=== PATIENT | female | born 1990 | race Caucasian/White ===

== ENCOUNTER 2020-12-14 22:23 | Emergency (ER) | payer OTHER, MEDICAID, SELFPAY ==
--- NOTE | ~2020-12-14 | XR_ITS ---
XR foot RT min 3V 12/14/2020 22:44 INDICATION: Right foot pain after trauma PROCEDURE: 4 views right foot COMPARISON: No prior studies for comparison. FINDINGS: Fracture, dislocation or subluxation is not identified. The soft tissues appear within norm al limits. No foreign bodies are identified. IMPRESSION: 1: NO ACUTE BONE OR JOINT ABNORMALITY IDENTIFIED. Reviewed, dictated and finalized at location A. NESS SUPPORT ASSISTANT
[2020-12-14 22:32] VITALS: BP 137/87; PULSE 88; RESP 18; TEMP 36.9; O2SAT 100
--- NOTE | 2020-12-14 22:40 | ED.LOWEXIN ---
HPI - Extremity Injury (Lower) General Chief Complaint: Extremity Injury, Lower Stated Complaint: r foot injury Time Seen by Provider: 12/14/20 22:37 Source: patient Mode of arrival: ambulatory Limitations: no limitations History of Present Illness HPI Narrative: Patient is a 22-year-old female complaining of right foot pain after heavy object dropped on her right foot at work prior to arrival. Patient states her pain is a 7 out of 10, aching, nonradiating. Patient denies any other pain or injury. Related Data Home Medications Medication Instructions Recorded Confirmed No Home Medications 12/14/20 12/14/20 Allergies Allergy/AdvReac Type Severity Reaction Status Date / Time No Known Allergies Allergy Unverified 04/01/18 10:48 Review of Systems Review of Systems: All systems reviewed & are unremarkable except as noted in HPI and below Constitutional: Constitutional: Denies body ache(s), Denies chills, Denies excessive sweating, Denies fatigue, Denies fever(s), Denies headache(s), Denies lethargy, Denies malaise, Denies weakness and Denies weight loss Eyes: Eyes: Denies blurry vision, Denies change in vision and Denies loss of vision ENT: Denies dizziness, Denies ear discharge, Denies headache(s), Denies lip swelling, Denies epistaxis, Denies nasal congestion, Denies neck pain, Denies throat swelling and Denies tongue swelling Cardiovascular: Cardiovascular: Denies chest pain, Denies chest pain at rest, Denies chest pain with activity, Denies diaphoresis, Denies rapid heart rate, Denies edema, Denies irregular heart rhythm, Denies lightheadedness, Denies palpitations, Denies dyspnea and Denies dyspnea on exertion Respiratory: Respiratory: Denies chest congestion, Denies cough, Denies hemoptysis, Denies dyspnea and Denies dyspnea on exertion Gastrointestinal: Gastrointestinal: Denies abdominal pain, Denies melena, Denies hematochezia, Denies diarrhea, Denies nausea, Denies vomiting and Denies hematemesis Musculoskeletal: Musculoskeletal: Denies abnormal gait, Denies deformity, Denies joint swelling, Denies limited range of motion, Denies neck pain and Denies numbness Neurologic: Denies Abnormal speech present, Denies abnormal gait, Denies confusion, Denies dizziness, Denies headache(s), Denies focal weakness, Denies loss of vision, Denies numbness, Denies Other visual disturbances, Denies Sensory deficit (Neuro) and Denies weakness Psychiatric: Psychiatric: Denies confusion, Denies depression, Denies auditory hallucinations, Denies homicidal ideation and Denies suicidal ideation Endocrine: Endocrine: Denies cold intolerance, Denies excessive sweating, Denies fatigue, Denies heat intolerance and Denies palpitations Hematologic/Lymphatic: Hematologic/Lymphatic: Denies easy bleeding and Denies easy bruising Allergic/Immunologic: Allergic/Immunologic: Denies lip swelling, Denies throat swelling and Denies tongue swelling Exam Const: General: no acute distress HENMT: Head: normal to inspection Eyes: Conjunctivae: conjunctivae normal Neck: Neck: normal visual inspection Resp: Effort & Inspection: normal respiratory effort Skin: General skin exam: normal color Rashes: no rashes Neuro: General: patient oriented x3, moves all extremities and no focal motor deficits Extrem: General: no clubbing, cyanosis or edema Other: Negative for any deformity of bilateral lower extremities. Pain on palpation of the right foot, mild swelling of the right foot, neurovascular is intact. Course Vital Signs Vital signs: Vital Signs Temperature 36.9 C 12/14/20 22:32 Pulse Rate 88 12/14/20 22:32 Respiratory Rate 18 12/14/20 22:32 Blood Pressure 137/87 12/14/20 22:32 Pulse Oximetry 100 12/14/20 22:32 Temperature 36.9 C 12/14/20 22:32 Pulse Rate 88 12/14/20 22:32 Respiratory Rate 18 12/14/20 22:32 Blood Pressure 137/87 12/14/20 22:32 Pulse Oximetry 100 12/14/20 22:32 MDM - Extremity Injur
[2020-12-14] MEDS: TETANUS,DIPHTHERIA,AC PERTUSSIS ADULT (0.5 ML) BOOSTRIX IM (23:24)
== END 2020-12-14 23:54 | disposition home or self-care (01) ==
LOC: ANHED 23:14
PROVIDERS: Emergency Provider Emergency Medicine
DX: S90.31XA Contusion of right foot, initial encounter (principal); Z23 Encounter for immunization; W20.8XXA Other cause of strike by thrown, projected or falling object, initial encounter
CPT/HCPCS: 73630; 90471; 90715; 99283

== ENCOUNTER 2022-12-02 10:11 | Outpatient (CLI) | payer OTHER, SELFPAY ==
--- NOTE | ~2022-12-02 | XR_ITS ---
EXAM: XR foot LT min 3V DATE: 12/02/2022 10:31 HISTORY: ACUTE PAIN IN LT FOOT HAPPENED WHEN WALKING . COMPARISON: None available. FINDINGS: Normal mineralization. No fracture or dislocation. No lytic or blastic lesion. Joint space s are maintained. No erosion or periosteal change. Soft tissues within normal limits. IMPRESSION: Unremarkable left foot radiograph findings. Reviewed, dictated and finalized at location K. L ORGAN PIPE MAKER
== END 2022-12-02 10:12 | disposition home or self-care (01) ==
LOC: ANHIMG 10:18
PROVIDERS: Visit Provider Nurse Practitioner Family
DX: M79.672 Pain in left foot (principal)
CPT/HCPCS: 73630

== ENCOUNTER 2024-01-07 08:58 | Emergency (ER) | payer OTHER, SELFPAY ==
--- NOTE | ~2024-01-07 | XR_ITS ---
EXAMINATION: XR soft tissue neck INDICATION: Left-sided foreign body sensation TECHNIQUE: Two views of the neck soft tissues are obtained. COMPARISON: None available FINDINGS: No radiopaque foreign body is identified. The neck soft tissues appear unremarkable. There is mild reversal of the normal cervical lordosis with mild spondylosis is noted at C5-6. IMPRESSION: 1. Unremarkable neck radiographs. Reviewed, dictated and finalized at location B. HYSICS SCIENTIST
[2024-01-07 09:14] VITALS: BP 144/82; PULSE 91; RESP 16; TEMP 37.2; O2SAT 100
--- NOTE | 2024-01-07 09:16 | ED.URI ---
HPI - URI/Sore Throat General Chief Complaint: Upper Respiratory Infection Stated Complaint: Sore Throat Time Seen by Provider: 01/07/24 09:16 Source: patient Mode of arrival: ambulatory Limitations: no limitations History of Present Illness HPI Narrative: 33 yo F presents with c/o FB sensation to L side of throat/neck for 2 days. Reports painful. No other symptoms. Afebrile. all systems reviewed and negative except as noted above. Related Data Home Medications Medication Instructions Recorded Confirmed No Home Medications 12/14/20 01/07/24 Allergies Allergy/AdvReac Type Severity Reaction Status Date / Time No Known Allergies Allergy Verified 01/07/24 09:12 Review of Systems Review of Systems: CONSTITUTIONAL: Denies fever, chills, or sweats. EYES: Denies visual changes, redness, or discharge. ENT: Denies rhinorrhea, congestion. reports pain to L side of throat/neck, worse with swallowing CARDIOVASCULAR: Denies chest pain, palpitations, or edema. RESPIRATORY: Denies cough or dyspnea. GASTROINTESTINAL: Denies abdominal pain, nausea, vomiting, or diarrhea. GENITOURINARY: Denies dysuria or hematuria. SKIN: Denies rash or itching. MUSCULOSKELETAL: Denies back pain, joint pain, or myalgia. NEUROLOGIC: Denies headache, numbness, or weakness. PSYCHIATRIC: Denies anxiety or depression. All other systems reviewed are negative, except as documented in HPI. PMFSH Comments At time of signature, agree with nursing past medical, surgical, social and family history. There is no relevant family history pertinent to the presenting complaint. Exam Narrative: GENERAL: This is a well-nourished, well-developed patient, in no apparent distress. HEAD: normocephalic, atraumatic. EYES: PERRL. Sclera clear/white. Vision is grossly intact. EARS: External ears normal, auditory canals clear and without drainage, TMs normal without perforation. Hearing grossly intact. NOSE: External nose normal with no obvious nasal discharge, nares without redness, no rhinorrhea. THROAT: Mucous membranes moist, posterior pharynx clear. NECK: Neck supple, non-tender without lymphadenopathy, masses or thyromegaly. CARDIOVASCULAR: Regular rate and rhythm without murmurs, gallops, or rubs. RESPIRATORY: Clear to auscultation. Breath sounds equal bilaterally. No wheezes, rales, or rhonchi. SKIN: warm, Dry, intact with no suspicious lesions or rash, good texture and turgor. NEURO: awake, alert, and oriented to person, place and time. There were no obvious focal neurologic abnormalities. EXTREMITIES: No joint tenderness, effusion, or edema noted. Course Course Level of Care: Express Care Visit Vital Signs Vital signs: Vital Signs Oxygen Delivery Room Air 01/07/24 09:09 Temperature 37.2 C 01/07/24 09:14 Pulse Rate 91 01/07/24 09:14 Respiratory Rate 16 01/07/24 09:14 Blood Pressure 144/82 H 01/07/24 09:14 Pulse Oximetry 100 01/07/24 09:14 Oxygen Delivery Room Air 01/07/24 09:14 Reviewed MDM - URI/Sore Throat MDM Narrative Medical decision making narrative: negative strep test. Patient exam is normal. No lymph node Enlargement or tenderness. Soft tissue neck x-ray normal. Recommend follow-up with primary care physician for further evaluation. Patient is aware of diagnosis, understands and agrees to treatment plan. Anticipatory guidance given. Patient agrees to follow-up as directed and is aware of reasons to seek care at the emergency department. Portions of this record may have been created with voice recognition software Lab Data Labs: Strep Screen Presumptive Negative *(Reference Range: Negative)* Imaging Data My impression: Agree with radiologist Radiologist's impression: EXAMINATION: XR soft tissue neck INDICATION: Left-sided foreign body sensation TECHNIQUE: Two views of the neck soft tissues are obtained. COM
== END 2024-01-07 09:52 | disposition home or self-care (01) ==
PROVIDERS: Emergency Provider Nurse Practitioner Family
DX: R09.A2 Foreign body sensation, throat (principal)
CPT/HCPCS: 70360; 87081; 87880; 99213; G0463

== ENCOUNTER 2024-01-07 15:02 | Emergency (ER) | payer OTHER, SELFPAY ==
[2024-01-07 15:15] VITALS: BP 147/96; PULSE 110; RESP 16; TEMP 36.6; O2SAT 98
--- NOTE | 2024-01-07 17:57 | PC.NURSE ---
called twice for MSE. no answer.
== END 2024-01-07 18:27 | disposition left against medical advice (07) ==
LOC: ANHED 18:13
DX: R09.A2 Foreign body sensation, throat (principal)
CPT/HCPCS: 99199

== ENCOUNTER 2024-09-17 08:56 | Outpatient (CLI) | payer OTHER, SELFPAY ==
--- NOTE | ~2024-09-17 | XR_ITS ---
XR chest 2V Ordering provider: Alicia Mata, ACID DIPPER History: 33 years Female with . ELEVATED LIVER ENZYMES, NO CHEST COMPLAINTS . Comparison: None. FINDINGS: MEDIASTINUM: The cardiac silhouette is not enlarged. LUNGS: No infiltrates, effusions or pneumothorax. OTHER: No free air under the diaphragm. IMPRESSION: No acute cardiopulmonary pathology. Reviewed, dictated and finalized at location A. IFIED HISTOLOGIC TECHNICIAN
--- NOTE | ~2024-09-17 | US_ITS ---
Limited ABDOMINAL ULTRASOUND Ordering provider: Alicia Mata, CORRUGATOR SUPERVISOR History: . ELEVATED LIVER ENZYMES . Comparison: None. FINDINGS: LIVER: Normal size and increased echotexture. No focal hepatic lesions or perihepatic fluid collectio ns are identified. Normal flow of the portal vein. GALLBLADDER: Unremarkable. No evidence for stones, sludge, gallbladder wall thickening or pericholecy stic fluid collections. The wall measures 2.7 mm. A negative sonographic Wyatt's sign was noted. BILIARY DUCTS: No evidence for intra or extrahepatic biliary dilation. Common bile duct measures 3 mm in diameter which is within normal limits. PANCREAS: Normal echotexture and size. UPPER ABDOMINAL AORTA: Normal in caliber. IVC: Patent. FREE FLUID: None. IMPRESSION: Fat infiltration of the liver. Otherwise, Unremarkable limited ultrasound of the abdomen. Reviewed, dictated and finalized at location A. 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 Otherwise, Unremarkable limited ultrasound of th e abdomen.
== END 2024-09-17 08:57 | disposition home or self-care (01) ==
PROVIDERS: PCP Nurse Practitioner Adult Health; Visit Provider Nurse Practitioner Adult Health
DX: R74.8 Abnormal levels of other serum enzymes (principal); F10.10 Alcohol abuse, uncomplicated; K76.0 Fatty (change of) liver, not elsewhere classified
CPT/HCPCS: 71046; 76705

== ENCOUNTER 2024-11-28 14:10 | Outpatient (CLI) | payer OTHER, SELFPAY ==
--- NOTE | ~2024-11-28 | XR_ITS ---
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 RESULT: Lines, tubes, and devices: None. Lungs and pleura: Clear. Cardiothymic silhouette: Stable. Other: No acute osseous or upper abdominal finding. IMPRESSION: No acute cardiopulmonary process. No acute osseous finding in the right ribs. Reviewed, dictated and finalized at location K. O TUBE ASSEMBLER
== END 2024-11-28 14:11 | disposition home or self-care (01) ==
PROVIDERS: PCP Nurse Practitioner Adult Health; Visit Provider Internal Medicine
DX: R07.89 Other chest pain (principal)
CPT/HCPCS: 71100

== ENCOUNTER 2025-06-14 07:02 | Emergency (ER) | payer OTHER, SELFPAY ==
[2025-06-14] VITALS (7 sets, daily range): BP systolic 133–150; BP diastolic 93–102; PULSE 80–112; RESP 18–28; TEMP 36.7; O2SAT 91–99
--- NOTE | ~2025-06-14 | CT_ITS ---
EXAMINATION: CT chest abdomen pelvis w con DATE: 06/14/2025 08:30 INDICATION: Right chest pain. Abdominal trauma. TECHNIQUE: Computed tomography (CT) of the chest, abdomen, and pelvis was performed with 100 mL Omnip aque-350 intravenous contrast. Automated exposure control and iterative reconstruction technique were employed. The dose-length product was 722.73 mGy-cm. COMPARISON: None FINDINGS: CHEST CT: Mild dependent and basilar atelectasis in both lungs. No pulmonary hemorrhage, pneumonia, pulmonary e krystal, pleural effusion or pneumothorax. Heart size is normal. No pericardial effusion. Thoracic aorta is normal in caliber with no dissection. No pathologically enlarged abdominal or pelvic lymphadenopa thy. Chronic mild expansion of the lateral right sixth rib which could represent old fracture deformi ty or potentially small osteochondroma. No acute osseous abnormality. ABDOMEN/PELVIS CT: Mild diffuse hepatic steatosis. Gallbladder, spleen, pancreas, bilateral adrenal glands and right kid saqib are normal. 5 mm low-attenuation left renal cyst. Bowels including the appendix are normal. Bladd er, anteverted uterus and right adnexa are unremarkable. 8.3 cm left adnexal cyst and mild left hydro salpinx without surrounding inflammatory stranding to suggest pyosalpinx. No free intraperitoneal gas or fluid. No pathologically enlarged abdominal or pelvic lymphadenopathy. Bones are unremarkable wit h no fracture. IMPRESSION: 1. No acute osseous abnormality or evident vascular or visceral organ injury in the chest, abdomen or pelvis. 2. Left hydrosalpinx and 8.3 similar left adnexal cyst. Consider gynecologic consultation. Reviewed, dictated and finalized at location A. IMPRESSION: 1. No acute osseous abnormality or evident vascular or visceral organ injury in the chest, abdomen or pelvis. 2. Left hydrosalpinx and 8.3 similar left adnexal cyst. Consider gynecologic co nsultation.
--- NOTE | 2025-06-14 07:14 | ED.GENADULT ---
HPI - General Adult General Chief complaint: Back Pain/Injury Stated complaint: severe side pain History of Present Illness HPI narrative: 34-year-old female presents emergency department for evaluation for right-sided rib and abdominal pain. Patient reports he had a fall few days ago where she tripped and landed on her dog. Patient does have some right arm pain but primarily complains of right lateral lower ribs and right upper quadrant abdominal pain. Patient arrived by EMS and did receive 4 mg of IV morphine, patient states this did help to improve her pain but patient is still uncomfortable appearing upon arrival to the emergency department. Related Data Allergies Allergy/AdvReac Type Severity Reaction Status Date / Time No Known Allergies Allergy Verified 06/14/25 07:27 Review of Systems Review of Systems: All systems reviewed & are unremarkable except as noted in HPI and below Exam Narrative: APPEARANCE: Uncomfortable appearing HEAD: normocephalic, atraumatic. EYES: PERRLA/EOMI, conjunctivae clear. NOSE: Normal no drainage EARS:TMS clear with good light reflex. THROAT: Pharynx clear, no exudate. NECK: Supple. No adenopathy, no masses. RESPIRATORY: Lung sounds clear bilaterally CARDIOVASCULAR: Tachycardic ABDOMINAL: Right upper quadrant tenderness to palpation MUSCULOSKELETAL: Right-sided lower rib tenderness to palpation NEURO: Alert. Cranial nerves II through XII intact. Good gait. Good coordination SKIN: Warm, dry. Normal Color Course Vital Signs Vital signs: Vital Signs Temperature 98.1 F 06/14/25 07:02 Pulse Rate 112 H 06/14/25 07:02 Respiratory Rate 18 06/14/25 07:02 Blood Pressure 150/102 H 06/14/25 07:02 Pulse Oximetry 94 06/14/25 07:02 Oxygen Delivery Room Air 06/14/25 07:02 Temperature 98.1 F 06/14/25 07:02 Pulse Rate 80 06/14/25 10:06 Respiratory Rate 20 06/14/25 10:06 Blood Pressure 133/94 H 06/14/25 10:06 Pulse Oximetry 99 06/14/25 10:06 Oxygen Delivery Room Air 06/14/25 07:02 Medical Decision Making [facility] Narrative Medical decision making narrative: 34-year-old female presents emergency department for evaluation for right-sided rib pain. Patient is currently afebrile leukocytosis hemoglobin 14.1. INR is 1.0. Patient has no significant acute abnormalities on her CMP, mild elevation AST and ALT. Urine was nitrite negative but was leukocyte esterase positive how a blood cells. Patient denies any urinary symptoms. Urine culture was ordered. CT chest abdomen pelvis was evaluated to evaluate for rib fractures, pulmonary contusion liver injury. CT scan showed no acute osseous abnormality or evident vascular visceral organ injury at the chest abdomen or pelvis. It did show a left hydrosalpinx and left adnexal cyst. Patient will be referred to gynecology for further evaluation. I suspect patient's pain is due to rib contusion versus occult rib fracture. Patient will be provided pain medication for home in addition to the symptoms prompted her. Patient was updated on the results of the workup encouraged close follow-up with OB Gyne and she was educated on reasons to return to the emergency department. 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 If patient calls back to the emergency department I am okay with a work note being written for her to have time of for light duty as needed. Differential Diagnosis Differential Diagnosis: Pneumonia, pneumothorax, rib fracture, rib contusion, liver laceration Vital Signs Vital Signs: Vital Signs Temperature 98.1 F 06/14/25 07:02 Pulse Rate 112 H 06/14/25 07:02 Respiratory Rate 18 06/14/25 07:02 Blood Pressure 150/102 H 06/14/25 07:02 Pulse Oximetry 94 06/14/25 07:02 Oxygen Delivery Room Air 06/14/25 07:02 Temperature 98.1 F 06/14/25 07:02 Pulse Rate 80 06/14/25 10:06 Respiratory Rate 20 06/14/25 10:06 Blood Pressure 133/94 H 06/14/25 10:06 Pulse Oximetry 99 06/14/25 10:06 Oxygen Delivery Room Air 06/14/25 07:02 Lab Data Lab results reviewed: Yes I reviewed the patient's lab results. 06/14/25 07:32 06/14/25 07:32 Labs: Lab Results 06/14/25 06/14/25 06/14/25 Range/Units 07:32 07:58 08:01 WBC 8.0 (4.5-10.0) K/mm3 RBC 4.18 L (4.2-5.4) M/mm3 Hgb 14.1 (12.0-15.0) g/dL Hct 42.7 (37.0-47.0) % MCV 102.2 H (80-100) fl MCH 33.7 (26-34) pg MCHC 33.0 (32-36) g/dl RDW 14.6 H (11.5-14.5) % Plt Count 341 (150-375) k/mm3 MPV 9.3 (7.4-10.4) fl Immature Gran % (Auto) 0.4 (0-0.5) % Neut % (Auto) 55.3 (45.5-73.1) % Lymph % (Auto) 30.7 (18.3-44.2) % [place] % (Auto) 7.5 (2.6-8.5) % Eos % (Auto) 5.1 H (0-4.4) % Baso % (Auto) 1.0 (0.2-1.2) % Lymph # (Auto) 2.46 (0.9-3.2) K/mm3 [place] # (Auto) 0.6 (0.1-0.6) K/mm3 Eos # (Auto) 0.4 H (0-0.3) K/mm3 Baso # (Auto) 0.1 (0.0-0.1) K/mm3 Abs Immat Gran (auto) 0.03 (0.00-0.031) K/mm3 Absolute Neuts (auto) 4.4 (1.3-6.7) K/mm3 Absolute Nucleated RBC 0.000 (0.0-0.012) K/mm3 Nucleated RBC % 0.0 (0.0-0.2) % PT 13.7 (11.1-14.7) Seconds INR 1.0 APTT 25.8 (22.3-36.8) Seconds Sodium 136 L (137-145) mmol/L Potassium 3.7 (3.4-5.0) mmol/L Chloride 105 (98-107) mmol/L Carbon Dioxide 18 L (22-30) mmol/L Anion Gap 13 H (4-12) mmol/L BUN 2 L (7-17) mg/dL Creatinine 0.65 L (0.7-1.0) mg/dL Estim Creat Clear Calc 105 ml/min Estimated GFR > 60 (59 - ) Glucose 109 (65-110) mg/dL Calcium 8.7 (8.4-10.2) mg/dL Total Bilirubin 0.4 (0.2-1.3) mg/dL AST 75 H (14-36) U/L ALT 56 H (6-35) U/L Alkaline Phosphatase 99 (38-126) U/L Total Protein 7.3 (6.3-8.2) g/dL Albumin 4.0 (3.5-5.1) g/dL Urine Color Yellow (Yellow) Urine Appearance Cloudy H (Clear) Urine pH 5.0 (5.0-9.0) Ur Specific [place] 1.009 (1.001-1.035) Urine Protein Negative (Negative) mg/dL Urine Glucose (UA) Negative (Negative) mg/dL Urine Ketones Negative (Negative) mg/dL Ur Blood (Man) Negative (Negative) Urine Nitrate Negative (Negative) Urine Bilirubin Negative (Negative) Urine Urobilinogen 0.2 (<2.0) mg/dL Add Ur Microanalysis Reviewed Leukocyte Esterase Rfl 2+ H (Negative) ALMAZ/UL Urine RBC 0-2 (0-2) /hpf Urine WBC 21-50 H (0-3) /hpf Ur Squamous Epith Cells Few (Few) /hpf Urine Bacteria Rare /hpf Urine Casts 6-10 POC Urine HCG, Qual Negative (Negative) Imaging Data Radiologist's impression: Impressions Chest/Abdomen/Pelvis CT 06/14/25 08:30 IMPRESSION: 1. No acute osseous abnormality or evident vascular or visceral organ injury in the chest, abdomen or pelvis. 2. Left hydrosalpinx and 8.3 similar left adnexal cyst. Consider gynecologic consultation. Discharge Plan Discharge Clinical Impression: Contusion of rib on right side, Adnexal cyst Patient Disposition: Home Condition: Stable Instructions: Antibiotic Form, How to Use an Incentive Spirometer (ED), Rib Fracture (ED) Additional Instructions: Your symptoms are concerning for rib fracture. Ibuprofen for pain control, [place] as needed for additional pain control. Flexeril for muscle spasm. Incentive spirometer as directed. If you have any worsening symptoms including worsening uncontrolled pain, fever or shortness of breath then please call or return to the emergency department. CT scan also did show a left hydrosalpinx and a left adnexal cyst, you will need close follow-up with OB Gyne for these incidental findings. Patient Language: Maldivian Prescriptions: New cyclobenzaprine 10 mg tablet 10 mg PO BID PRN (Reason: muscle spasm) Qty: 14 0RF hydrocodone-acetaminophen 5-325 mg tablet 1 tablet PO Q12H PRN (Reason: pain) Qty: 14 0RF Follow-up/Referrals: Adolfo,Alicia Fields APRN [Primary Care Provider] - Anushka Garcia MD [Physician] -
[2025-06-14] MEDS: HYDROmorphone HCL INJ (*CRX) 2 MG/ML VIAL 1 MG IV PUSH (07:31)
[2025-06-14] MEDS: LACTATED RINGERS 1,000 ML 999 ML IV CONT (07:32)
[2025-06-14] MEDS: CYCLOBENZAPRINE HCL 10 MG TABLET PO (07:32)
[2025-06-14 07:38] LABS: Hematocrit 42.7 % (37.0-47.0); Hemoglobin 14.1 g/dL (12.0-15.0); Immature Granulocyte Percent A 0.4 % (0-0.5); Lymphocytes Absolute Auto 2.46 K/mm3 (0.9-3.2); Mean Corpuscular HGB Conc 33.0 g/dl (32-36); Mean Corpuscular Hemoglobin 33.7 pg (26-34); Mean Corpuscular Volume 102.2 fl (80-100); Nucleated Red Blood Cells Absolute Auto 0.000 K/mm3 (0.0-0.012); Nucleated Red Blood Cells Perc 0.0 % (0.0-0.2); Platelet Count Result 341 k/mm3 (150-375); Red Blood Count 4.18 M/mm3 (4.2-5.4); White Blood Count 8.0 K/mm3 (4.5-10.0)
[2025-06-14 07:49] LABS: INR 1.0; Partial Thromboplastin Time 25.8 Seconds (22.3-36.8); Prothrombin Time 13.7 Seconds (11.1-14.7)
[2025-06-14 07:57] LABS: Alanine Aminotransferase 56 U/L (6-35); Albumin Level 4.0 g/dL (3.5-5.1); Alkaline Phosphatase 99 U/L (38-126); Anion Gap 13 mmol/L (4-12); Aspartate Amino Transferase 75 U/L (14-36); Bilirubin,Total 0.4 mg/dL (0.2-1.3); Blood Urea Nitrogen 2 mg/dL (7-17); Calcium 8.7 mg/dL (8.4-10.2); Carbon Dioxide 18 mmol/L (22-30); Chloride 105 mmol/L (98-107); Estimated CRCL calculation 105 ml/min; Estimated Glomerular Filt Rate > 60; Glucose 109 mg/dL (65-110); Potassium 3.7 mmol/L (3.4-5.0); Sodium 136 mmol/L (137-145); Total Protein 7.3 g/dL (6.3-8.2)
--- OUTSIDE RECORDS SUMMARY | 2025-06-14 07:59 | XMS_ITS | Clinical Summary ---
Author Organization [facility] ON Address [address] [place] [address] Care Team Providers Care Time Lock Expert Name Role Phone Ratna Meeks MD Primary Care Provider Allergies Active Allergy Reactions Criticality Noted Date Comments Sertraline Other (See Comments) 01/13/2025 [place] like a Zombie Medications cholecalciferol (Vitamin D3) 25 mcg (1,000 unit) Tablet, Chewable Take 2 Tablets (2,000 Units) by mouth daily. 06/05/2024 Active folic acid (FOLVITE) 1 mg tabletIndicatio ns:Folic acid deficiency (non anemic) TAKE 1 TABLET(1 MG) BY MOUTH DAILY 90 Tablet 1 10/23/2024 Active prazosin (MINIPRESS) 1 mg capsuleIndicati ons:Nightmares Take 1-4 Capsules (1-4 mg) by mouth daily at bedtime. 120 Capsule 1 03/26/2025 Active propranoloL (INDERAL) 10 mg tablet TAKE 1 TABLET(10 MG) BY MOUTH THREE TIMES DAILY 90 Tablet 1 04/13/2025 Active esomeprazole (NexIUM) 40 mg Capsule, Delayed Release(E.C.)In dications:Laryn gopharyngeal reflux (LPR) Take 1 Capsule (40 mg) by mouth daily before breakfast. Take 15-30 min prior to first meal of the day. 90 Capsule 04/29/2025 Active DULoxetine (CYMBALTA) 30 mg Capsule, Delayed Release(E.C.)In dications:Depre ssion with anxiety Take 1 Capsule (30 mg) by mouth 2 times daily. 120 Capsule 05/12/2025 Active meloxicam (MOBIC) 7.5 mg tabletIndicatio ns:Mid back pain Take 1-2 Tablets (7.5-15 mg) by mouth daily. 60 Tablet 05/12/2025 Active Active Problems Problem Noted Date Diagnosed Date Elevated blood pressure read ing without diagnosis of hypertension 10/23/2024 Alcohol abuse 09/04/2024 MTHFR gene mutation 04/24/2024 History of suicide attempt 2018-- overdose sleep ing pills 04/08/2024 Folic acid deficiency (non anemic) 04/08/2024 Vitamin D deficiency 04/08/2024 Mixed hyperlipidemia 03/31/2024 Gastroesophageal reflux disease 01/14/2024 Laryngopharyngeal reflux (LPR) 01/14/2024 Major depressive disorder 07/18/2019 Tobacco use 11/29/2017 Resolved Problems Problem Noted Date Diagnosed Date Resolved Date Uncomplicated alcohol abuse 09/20/2021 09/26/2023 Drug overdose 07/17/2019 09/26/2023 Encounters Date Type Department Care Team Description 05/27/2025 External Device Data STL ABSTRACTION Provider, Abstract 05/26/2025 External Device Data STL ABSTRACTION Provider, Abstract 05/12/2025 8:30 AM CDT Office Visit [facility] [employer] [facility] [address] [place] [address] Ratna Meeks MD Depression with anxiety (Primary Dx); Mid back pain 05/12/2025 External Device Data STL ABSTRACTION Provider, Abstract 05/06/2025 Chart Note [facility] [address] [place] [id number] Humberto Wallace 05/01/2025 2:00 PM CDT Procedure visit [facility] [address] [place] [address] Encounter for issue of repeat prescription (Primary Dx) 04/29/2025 Refill [facility] [address] [place] [address] Alicia Mata ANP Laryngopharyngeal reflux (LPR) 04/28/2025 Telephone [facility] [address] [facility] [place] [address] Humberto Wallace A CoCM Mayra Appt (1st contact to reschedule missed appointment. Pt had been having difficulty with [employer] sign on, so I called and still no response.Left message.) 04/14/2025 10:00 AM CDT Office Visit [address] [place] [address] Humberto Wallace A Moderate episode of recurrent major depressive disorder (CMS/HCC) (Primary Dx); Alcohol use disorder 04/11/2025 Refill [facility] [address] [facility] [place] [id number] Ratna Meeks MD 04/09/2025 7:30 AM CDT Office Visit [facility] at [address] [facility] [place] [address] Ratna Meeks MD Depression with anxiety (Primary Dx); PTSD (post-traumatic stress disorder); Nightmares 03/26/2025 3:00 PM CDT Office Visit [address] [facility] [place] [address] Ratna Meeks MD Nightmares (Primary Dx); Depression with anxiety 03/26/2025 Refill [facility] at [address] [facility] [place] [address] Ratna Meeks MD Nightmares 03/26/2025 Telephone [facility] at [address] [facility] [place] [address] Humberto Wallace A CoCM Follow Up ([facility] submitted a psychiatric consult for addressing increased anxiety. Dr. Arenas submitted a new recommendation to Dr. Meeks today.) 03/25/2025 Chart Note [facility] at [address] [facility] [place] [address] Humberto Wallace 03/24/2025 10:00 AM CDT Video Visit [facility] [employer] [place] [address] [place] [address] RodrigoHumberto Moderate episode of recurrent major depressive disorder (CMS/HCC) (Primary Dx); Alcohol use disorder, mild, in early remission 03/20/2025 Chart Note [facility] [employer] [place] [address] [address] Humberto Wallace 03/16/2025 Telephone [facility] [address] [place] [address] Jose Gongora, TRINITY Foot Pain from Last 3 Months Immunizations Immunization Administration Dates Next Due (ADACEL/BOOSTRIX)(10 YR UP) TDAP VACCINE, 0.5ML, IM 12/14/2020 (KENDALL) COVID-19 VACCINE - EMERGENCY USE AUTHORIZATION, AD26,COV2S(PF) 0.5 ML IM SUSP 06/02/2021 Family History Medical History Relation Name Comments Sleep Disorder Brother KENDALL Atrial fibrillation Father COPD Father Diabetes Father Hypertension Father Kidney Disease Maternal Grandfather Unknown Maternal Grandmother High Cholesterol Mother trig Cancer Paternal Grandfather Brain a nd Lung Cancer Emphysema Paternal Grandmother Thyroid Disease Paternal Grandmother Relation Name Status Comments Brother Alive Father Alive Maternal Grandfather Maternal Grandmother Mother Alive Paternal Grandfather Paternal Grandmother Social History Tobacco Use Types Packs/Day Years Used Date Smoking Tobacco: Every Day Cigarettes Smokeless Tobacco: Never Tobacco Cessation:Ready to Q uit: Not Asked; Counseling Given: Not Answered Alcohol Use Standard Drinks/Week Comments Yes 0 (1 standard drink = 0.6 oz pur e alcohol) 8 drinks a week Comments No Sex and Gender Information Value Date Recorded Sex Assigned at Not on file Legal Sex Female 2:48 PM EVP MANAGING DIRECTOR Gender Identity Not on file Sexual Orientation Not on file Last Filed Vital Signs Vital Sign Reading Time Taken Comments Blood Pressure 128/86 05/12/2025 8:13 AM CDT Pulse 87 05/12/2025 8:13 AM CDT Temperature 37.2 C (99 F) 03/26/2025 2:55 PM CDT Respiratory Rate 18 05/12/2025 8:13 AM CDT Oxygen Saturation 97% 05/12/2025 8:13 AM CDT Inhaled Oxygen Concentration - - Weight 85.7 kg (189 lb) 05/12/2025 8:13 AM CDT Height 162.6 cm (5' 4) 05/12/2025 8:13 AM CDT Body Mass Index 32.44 05/12/2025 8:13 AM CDT Plan of Treatment Upcoming Encounters Date Type Department Care Team (Late st Contact Info) Description 08/03/2025 7:20 AM CDT Procedure visit [facility] [employer] [place] [address] [place] [address] 08/10/2025 8:00 AM CDT Office Visit [facility] [employer] [place] [address] [place] [address] Alicia Mata, ANP [address] [address] 08/12/2025 7:30 AM CDT Office Visit [facility] [employer] [place] [address] [place] [address] Ratna Meeks MD [address] [place] [address] Health Maintenance Due Date Last Done Comments HPV VACCINES (1 - 3-dose series) 2007 HEPATITIS B VACCINES (1 of 3 - 19+ 3-dose series) 2011 HPV/Cotest (21-29) 2013 CERVICAL CANCER SCREENING 2022 HPV/Cotest (30-65) 2022 PAP SMEAR 2022 COVID-19 Vaccine ( season) 2024 INFLUENZA VACCINE (#1) 2025 09/22/2024, 2020 DTAP/TDAP/TD VACCINES (2 - Td or Tdap) 12/14/2030 Care Teams Time Lock Expert Relationship Specialty Start Date End Date Ratna Meeks MD [address] [place] [address] [place] [address] PCP - General Internal Medicine 04/02/24
--- OUTSIDE RECORDS SUMMARY | 2025-06-14 07:59 | XMS_ITS | Encounter Summary ---
Author Organization [facility] Address [address] [place] [address] Care Team Providers Care Rib Cloth Knitter Name Role Phone Ratna Meeks MD Primary Care Provider [phone] Encounter Details Date Type Department Care Team (Late st Contact Info) Description 12/03/2024 Results Follow-Up [facility] at [facility] [employer] [place] [address] [place] [address] Ratna Meeks MD [address] [place] [address] XR RIBS UNILATERAL 2 VW RIGHT Social History Tobacco Use Types Packs/Day Years Used Date Smoking Tobacco: Every Day Cigarettes Smokeless Tobacco: Never Alcohol Use Standard Drinks/Week Comments Yes 0 (1 standard drink = 0.6 oz pur e alcohol) 8 drinks a week Comments No Sex and Gender Information Value Date Recorded Sex Assigned at Not on file Legal Sex Female 2:48 PM INDEX EDITOR Gender Identity Not on file Sexual Orientation Not on file documented as of this encounter Miscellaneous Notes * Result Encounter Note - Jana Gomez RN - 12/05/2024 7:56 AM INDEX EDITOR Sent pt Hypori message giving this information X EDITOR * Result Encounter Note - Jana Gomez RN - 12/04/2024 9:19 AM INDEX EDITOR Spoke to pt giving this information. Pt verbalized understanding. Pt states she has had some improvement in pain but it is still there. Pt states it is more of a moderate pain instead of severe as long as pt limits movements/lifting. X EDITOR documented in this encounter Plan of Treatment Upcoming Encounters Date Type Department Care Team (Late st Contact Info) Description 08/03/2025 7:20 AM CDT Procedure visit [facility] [employer] [place] [address] [place] [address] 08/10/2025 8:00 AM CDT Office Visit [facility] [employer] [place] [address] [place] [address] Alicia Mata, ANP [address] [facility] [address] [place] [address] 08/12/2025 7:30 AM CDT Office Visit [facility] [employer] [place] [address] [place] [address] Ratna Meeks MD [address] [place] [address] documented as of this encounter Visit Diagnoses Not on filedocumented in this encounter Care Teams Rib Cloth Knitter Relationship Specialty Start Date End Date Ratna Meeks MD [address] [place] [address] PCP - General Internal Medicine 04/02/24 documented as of this encounter
[2025-06-14 08:06] LABS: BEDSIDEPREGUCG Negative (Negative)
[2025-06-14 08:18] LABS: Add Urine Microscopic? YES; Appearance Urine Cloudy (Clear); Glucose Urine UA Negative (Negative); Leukocyte Esterase Ur 2+ LEU/UL (Negative); Need Manual Microscopic Reviewed; Nitrate Urine Negative (Negative); Specific Grav Ur 1.009 (1.001-1.035)
[2025-06-14] MEDS: HYDROcodone/acetaminophen (*CRX) 5-325 MG TABLET 1 TAB PO (09:30)
== END 2025-06-14 10:08 | disposition home or self-care (01) ==
PROVIDERS: Emergency Provider Emergency Medicine; PCP Nurse Practitioner Adult Health
DX: S20.211A Contusion of right front wall of thorax, initial encounter (principal); N94.89 Other specified conditions associated with female genital organs and menstrual cycle; N70.11 Chronic salpingitis; W01.198A Fall on same level from slipping, tripping and stumbling with subsequent striking against other object, initial encounter
CPT/HCPCS: 36415; 71260; 74177; 80053; 81001; 81025; 85025; 85610; 85730; 87086; 96361; 96374; 99284; A9270; J1171; J7120; Q9967

== ENCOUNTER 2025-08-27 12:30 | Outpatient (CLI) | payer OTHER, SELFPAY ==
[2025-08-27 12:54] LABS: Hematocrit 40.5 % (37.0-47.0); Hemoglobin 12.8 g/dL (12.0-15.0); Mean Corpuscular HGB Conc 31.6 g/dl (32-36); Mean Corpuscular Hemoglobin 31.2 pg (26-34); Mean Corpuscular Volume 98.8 fl (80-100); Platelet Count Result 514 k/mm3 (150-375); Red Blood Count 4.10 M/mm3 (4.2-5.4); White Blood Count 9.9 K/mm3 (4.5-10.0)
--- OUTSIDE RECORDS SUMMARY | 2025-08-27 14:06 | XMS_ITS | Clinical Summary ---
Author Organization [facility] ON Address [address] [place] [address] Care Team Providers Care Peanut Farmer Name Role Phone Ratna Meeks MD Primary Care Provider [phone] Allergies Active Allergy Reactions Criticality Noted Date Comments Sertraline Other (See Comments) 01/13/2025 [place] like a Zombie Medications cholecalciferol (Vitamin D3) [...] TIMES DAILY 90 Tablet 1 04/13/2025 Active HYDROcodone-dedra taminophen (NORCO) 5-325 mg tablet Take 1 Tablet by mouth every 12 hours as needed for Pain. 06/14/2025 Active cyclobenzaprine (FLEXERIL) 10 mg tablet Take 1 Tablet (10 mg) by mouth 3 times daily as needed for Spasm. 30 Tablet 06/17/2025 Active ibuprofen (MOTRIN) 800 mg tabletIndicatio ns:Right-sided chest wall pain Take 1 Tablet (800 mg) by mouth every 8 hours as needed for Pain, Mild. 30 Tablet 1 06/17/2025 Active esomeprazole (NexIUM) 40 mg Capsule, Delayed Release(E.C.)In dications:Laryn gopharyngeal reflux (LPR) Take 1 Capsule (40 mg) by mouth daily before breakfast. Take 15-30 min prior to first meal of the day. 90 Capsule 07/09/2025 Active DULoxetine (CYMBALTA) 30 mg Capsule, Delayed Release(E.C.)In dications:Depre ssion with anxiety Take 1 Capsule (30 mg) by mouth 2 times daily. 120 Capsule 07/09/2025 Active Active Problems Problem Noted Date Diagnosed [...] Encounters Date Type Department Care Team Description 08/11/2025 External Device Data STL ABSTRACTION Provider, Abstract 07/16/2025 10:20 AM CDT Procedure visit [facility] at [place] [address] [place] [address] Issue of repeat prescription for medication (Primary Dx) 07/16/2025 Telephone [facility] at [place] [address] [place] [address] Ratna Meeks MD Medication Review 07/08/2025 Refill [facility] at [place] [address] [place] [place] [address] Ratna Meeks MD Laryngopharyngeal reflux (LPR); Depression with anxiety 07/06/2025 Chart Note [facility] at [place] [address] [place] [address] Humberto Wallace 07/03/2025 Telephone [facility] at [place] [address] [place] [place] [address] Humberto Wallace CoCM Mayra Appt (3rd contact to reschedule missed appoinment. Left message.) 07/01/2025 Chart Note [facility] at [place] [address] [place] [address] Humberto Wallace 06/17/2025 2:00 PM CDT Office Visit [place] [address] [place] [place] [address] Ratna Meeks MD Right-sided chest wall pain (Primary Dx); Elevated liver enzymes; Steatosis of liver; Alcohol use disorder; Macrocytosis; Elevated blood pressure reading without diagnosis of hypertension 06/17/2025 External Device Data STL ABSTRACTION Provider, Abstract 06/16/2025 External Device Data STL ABSTRACTION Provider, Abstract 06/15/2025 [facility] at [place] [address] [place] [place] [address] Alicia Mata ANP Follow Up (ER visit) 05/27/2025 External Device Data STL ABSTRACTION Provider, Abstract from Last 3 Months Immunizations Immunization Administration [...] on file Legal Sex Female 2:48 PM LEGAL ENTITY CONTROLLER Gender Identity Not on file Sexual Orientation Not on file Last Filed Vital Signs Vital Sign Reading Time Taken Comments Blood Pressure 154/90 06/17/2025 1:41 PM CDT Pulse 111 06/17/2025 1:41 PM CDT Temperature 37.1 C (98.8 F) 06/17/2025 1:41 PM CDT Respiratory Rate 20 06/17/2025 1:41 PM CDT Oxygen Saturation 95% 06/17/2025 1:41 PM CDT Inhaled Oxygen Concentration - - Weight 84.8 kg (187 lb) 06/17/2025 1:41 PM CDT Height 162.6 cm (5' 4) 06/17/2025 1:41 PM CDT Body Mass Index 32.1 06/17/2025 1:41 PM CDT Plan of Treatment Health Maintenance Due Date Last Done Comments HEPATITIS B VACCINES (1 of 3 - 19+ 3-dose series) 09/13 HPV/Cotest (21-29) 2013 HPV VACCINES (1 - 3-dose SCDM series) 2019 CERVICAL CANCER SCREENING 2022 HPV/Cotest (30-65) 2022 PAP SMEAR 2022 INFLUENZA VACCINE (#1) 2025 COVID-19 Vaccine (2 - 2024- season) 2025 DTAP/TDAP/TD VACCINES (2 - Td or Tdap) 12/14/2030 Care Teams Peanut Farmer Relationship Specialty Start Date End Date Ratna Meeks MD [address] [place] [address] [place] [address] PCP - General Internal Medicine 04/02/24
--- OUTSIDE RECORDS SUMMARY | 2025-08-27 14:06 | XMS_ITS | Encounter Summary ---
Author Organization [facility] Address [address] [place] [address] Care Team Providers Care Pari Mutuel Clerk Name Role Phone Ratna Meeks MD Primary Care Provider [phone] Encounter Details Date Type Department Care Team (Late st Contact Info) Description 12/03/2024 Results Follow-Up [facility] at Work [employer] [address] [place] [address] Ratna Meeks MD [address] [place] [address] XR RIBS UNILATERAL 2 VW [...] on file Legal Sex Female 2:48 PM PRECISION FARMING COORDINATOR Gender Identity Not on file Sexual Orientation Not on file documented as of this encounter Miscellaneous Notes * Result Encounter Note - Jana Gomez RN - 12/05/2024 7:56 AM PRECISION FARMING COORDINATOR Sent pt Letao message giving this information ISION FARMING COORDINATOR * Result Encounter Note - Jana Gomez RN - 12/04/2024 9:19 AM PRECISION FARMING COORDINATOR Spoke to pt giving this information. Pt verbalized understanding. Pt states she has had some improvement in pain but it is still there. Pt states it is more of a moderate pain instead of severe as long as pt limits movements/lifting. ISION FARMING COORDINATOR documented in this encounter Plan of Treatment Not on file documented as of this encounter Visit Diagnoses Not on filedocumented in this encounter Care Teams Pari Mutuel Clerk Relationship Specialty Start Date End Date Ratna Meeks MD [address] [place] [address] [place] [address] PCP - General Internal Medicine 04/02/24 documented as of this encounter
== END 2025-08-27 12:31 | disposition home or self-care (01) ==
LOC: ANHLAB 12:32
PROVIDERS: Visit Provider Student in an Organized Health Care Education/Training Program
DX: N83.202 Unspecified ovarian cyst, left side (principal)
CPT/HCPCS: 36415; 85027; 86850; 86900; 86901

== ENCOUNTER 2025-09-08 00:40 | Day surgery (SDC) | payer OTHER, SELFPAY ==
[2025-08-26 14:53] VITALS: BMI 34.7
--- NOTE | 2025-08-26 15:24 | PC.NURSE ---
[facility] has started construction of its new state of the art ER which will open Spring 2026. With this, we anticipate parking may be a challenge for some our surgical patients and families. Parking spaces are limited but are available for all Surgical, obstetrics, and ER patients sharing this lot. If you arrive and find you are having a hard time finding a parking space, please note that we understand the challenges, please drive around the hospital and park near Hospital Entrance 1. When you enter this entrance, you can ask a volunteer to direct or take you back to the surgical waiting area to check in. We appreciate everyone?s understanding of these expected challenges while we build for your future. Report to the Outpatient Waiting Room, entrance under the green pavilion located off [address], at time _0600AM on date 09/08/25 . Planned Procedure Time: 0730AM .? Time changes happen often and if your time is changed the preop area will call you the afternoon before. - You and your visitor will be asked to self-screen and do not enter if you have any COVID symptoms. Please call surgeon if you need to reschedule. - A mask is optional within the hospital at this time. Patients may have clear liquids (water, carbonated beverages, clear teas, apple juice) until 3 hours prior to surgery with a maximum of 20 ounces. - No food from midnight until time of surgery and no smoking, or chewing tobacco (or any form of nicotine). No chewing gum, candy or mints. Take only the following medications with a SIP of water on the morning of surgery: __DULOXETINE DO NOT STOP ANY OF YOUR OTHER PRESCRIPTION MEDICATIONS PRIOR TO SURGERY EXCEPT THE FOLLOWING Hold all vitamins and supplements for 3 days per anesthesiologist. Medications to discontinue per physician N/A Date to take last dose___N/A Please no make-up, nail armenian, hairspray, perfume, deodorant, or body powder the day of surgery.? No jewelry (including any body piercings) or valuables the day of surgery, leave them at home.? Please take a shower or bath the night before, or the morning of, surgery with an antibacterial soap.? Wear comfortable, loose fitting clothing.? - Jewelry must be removed prior to entering the operating room.? Rings and piercings that are not removed may be cut off. - The hospital will not accept responsibility for valuables.? - Please leave all valuables, including medications, at home the day of surgery. If you are going home after surgery, a licensed electric mule driver must drive you home.? - NO public transportation without another adult if you receive anesthesia. - We recommend that an adult stay with you for 24 hours following discharge. - We also recommend that you do not drive, make important decision, drink alcoholic beverages, or take any drugs that were not prescribed by your health care provider for at least 24 hours after your discharge time. Follow any additional instructions given to you from your surgeon. Telephone instructions given to SANJIV and asked if any additional questions and then verbalized understanding. Patient advised to call surgeon office or pre surgery nurse liaison [phone] if any additional questions.
[2025-09-08] VITALS (9 sets, daily range): BP systolic 110–134; BP diastolic 64–83; PULSE 74–107; RESP 12–22; TEMP 36.2–36.7; O2SAT 93–100
--- OUTSIDE RECORDS SUMMARY | 2025-09-08 00:43 | XMS_ITS | Clinical Summary ---
Author Organization [facility] Address [address] [place] [address] Care Team Providers Care Mining Support Worker Name Role Phone Ratna Meeks MD Primary Care Provider [phone] Allergies Active Allergy Reactions Criticality Noted Date Comments Sertraline Other (See Comments) 01/13/2025 Willards like a Zombie Medications cholecalciferol (Vitamin D3) [...] Abstract 07/16/2025 10:20 AM CDT Procedure visit [facility] [place] [address] [place] [address] Issue of repeat prescription for medication (Primary Dx) 07/16/2025 Telephone [facility] [place] [address] [place] [address] Ratna Meeks MD Medication Review 07/08/2025 Refill [facility] [address] [place] [address] Ratna Meeks MD Laryngopharyngeal reflux (LPR); Depression with anxiety 07/06/2025 Chart Note [facility] [place] [address] [place] [address] Humberto Wallace 07/03/2025 Telephone [facility] [place] [address] [facility] [address] [place] [address] Humberto Wallace CoCM Mayra Appt (3rd contact to reschedule missed appoinment. Left message.) 07/01/2025 Chart Note [facility] [place] [address] [place] [address] Humberto Wallace 06/17/2025 2:00 PM CDT Office Visit [place] [address] [facility] [place] [place] [address] Ratna Meeks MD Right-sided chest wall pain (Primary Dx); Elevated liver enzymes; Steatosis of liver; Alcohol use disorder; Macrocytosis; Elevated blood pressure reading without diagnosis of hypertension 06/17/2025 External Device Data STL ABSTRACTION Provider, Abstract 06/16/2025 External Device Data STL ABSTRACTION Provider, Abstract 06/15/2025 Telephone [facility] [place] [address] [facility] [place] [place] [address] Alicia Mata, JUANITA Follow Up (ER visit) from Last 3 Months Immunizations Immunization Administration Dates Next Due (ADACEL/BOOSTRIX)(10 YR UP) TDAP VACCINE, 0.5ML, IM 12/14/2020 ([facility]ALL) COVID-19 VACCINE - EMERGENCY USE AUTHORIZATION, AD26,COV2S() 0.5 ML IM SUSP 06/02/2021 Family History [...] on file Legal Sex Female 2:48 PM BED RUBBER Gender Identity Not on file Sexual Orientation [...] 2022 HPV/Cotest (30-65) 2022 PAP SMEAR 2022 Preventative Visit- Commercial 11/12/2024 INFLUENZA VACCINE (#1) 2025 COVID-19 Vaccine (2 - 2024- season) 2025 DTAP/TDAP/TD VACCINES (2 - Td or Tdap) 12/14/2030 Insurance 2 [place] [address] ALLEGIANCE OPEN ACCESS Care Teams Mining Support Worker Relationship Specialty Start Date End Date Ratna Meeks MD [address] [place] [address] PCP - General Internal Medicine 04/02/24
--- OUTSIDE RECORDS SUMMARY | 2025-09-08 00:43 | XMS_ITS | Encounter Summary ---
Author Organization [facility] Address [address] [place] [address] Care Team Providers Care Farm Service Consultant Name Role Phone Ratna Meeks MD Primary Care Provider [phone] Encounter Details Date Type Department Care Team (Late st Contact Info) Description 12/03/2024 Results Follow-Up [facility] [address] [place] [address] Ratna Meeks MD [address] [address] XR RIBS UNILATERAL 2 VW [...] on file Legal Sex Female 2:48 PM [employer] Gender Identity Not on file Sexual Orientation Not on file documented as of this encounter Miscellaneous Notes * Result Encounter Note - Jana Gomez RN - 12/05/2024 7:56 AM [employer] Sent pt [employer]. 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 Pt verbalized understanding. Pt states she has had some improvement in pain but it is still there. Pt states it is more of a moderate pain instead of severe as long as pt limits movements/lifting. AIRSPACE OFFICER documented in this encounter Plan of Treatment Not on file documented as of this encounter Visit Diagnoses Not on filedocumented in this encounter Care Teams Farm Service Consultant Relationship Specialty Start Date End Date Ratna Meeks MD [address] [place] [address] [place] [address] PCP - General Internal Medicine 04/02/24 documented as of this encounter
--- NOTE | 2025-09-08 09:32 | PM.IMHP ---
H&P: HPI History of Present Illness Date/Time: 09/08/25 09:32 Chief Complaint: left ovarian cyst left hydrosalpinx Narrative: 34-year-old female who presents for laparoscopic left ovarian cystectomy and left salpingectomy for left ovarian cyst and hydrosalpinx. Patient presented to the emergency room with right upper quadrant and rib pain after a fall. Patient had abdominal imaging and incidentally found an 8.3 cm cyst on her left ovary. Patient denies any pelvic pain or left lower quadrant pain. Patient was also noted to have a left-sided hydrosalpinx. Review of Systems Cardiovascular: Cardiovascular: Denies chest pain, Denies leg edema, Denies palpitations, Denies dyspnea and Denies dyspnea on exertion Respiratory: Respiratory: Denies cough, Denies dyspnea and Denies dyspnea on exertion Gastrointestinal: Gastrointestinal: Denies abdominal pain, Denies constipation, Denies diarrhea, Denies nausea and Denies vomiting Genitourinary: Genitourinary: Denies hematuria, Denies urinary frequency, Denies dysuria, Denies pelvic pain, Denies urinary incontinence and Denies vaginal discharge Neurologic: Reports system reviewed and no additional complaints, except as documented Psychiatric: Psychiatric: Reports no additional psychiatric complaints Endocrine: Endocrine: Denies palpitations PMFSH Past Medical History Medical History GERD (gastroesophageal reflux disease) Anxiety Surgical History Surgical History H/O dilation and curettage Family History Family History Father Depression Diabetes mellitus Heart disease Hypertension Legal Guardian No problems noted. Grandparent Depression Social History Social History Smoking packs per day: 1 Smoking cigarettes per day: 20.0 Years smoked: 15 Smoking pack-years: 15.00 Smoking status: Current every day smoker Tobacco type: cigarettes Alcohol intake: current Substance use: current Substance use type: marijuana Last use: 08/25/25 Do You Feel Safe in your Home?: Yes Lack of Transportation: No Lack of Food: Never True Current Housing: I Have Housing Concerned About Future Housing: No Difficulty Paying Gas/Electric Bills: No Difficulty Paying for Meds: No Currently Unemployed: No Education: High School Diploma/GED Difficulty w/ Childcare or Family Care: No Living arrangements: with family Occupation/Education: occupation Gender identity (if verbalized by the patient): Female Sexual Orientation (if Verbalized by the Patient): Straight or Heterosexual Spiritual care concerns: No Meds Home Medications and Allergies Home Medications ?Medication ?Instructions ?Recorded ?Confirmed ?Type propranolol 10 mg tablet 10 mg PO 07/02/25 07/02/25 History Held on 08/26/25. Instructions: Patient no longer taking duloxetine 30 mg capsule,delayed 30 mg PO BID 08/26/25 08/26/25 History release (Cymbalta) omeprazole magnesium 20 mg 40 mg PO DAILY 08/26/25 08/26/25 History capsule,delayed release Allergies Allergy/AdvReac Type Severity Reaction Status Date / Time No Known Allergies Allergy Verified 08/26/25 15:18 Exam Const: General: no acute distress Eyes: EOM: EOMs intact bilaterally Neck: Neck: supple Thyroid: thyroid normal Chest: Breast/axilla inspection: normal inspection of the breasts Breast/axilla palpation: normal palpation of the breasts, normal palpation of the axillae and no axillary lymphadenopathy Resp: Effort & Inspection: normal respiratory effort Auscultation: clear to auscultation bilaterally Cardio: Rate: regular rate Rhythm: regular rhythm GI: Inspection: non-distended GI Palp: Yes Soft to palpation, No Tenderness to palpation present (GI) and No Guarding due to palpation present (GI) Auscultation: normal bowel sounds : General: No bladder normal to palpation External Female Exam: normal external appearance Speculum Exam - Vagina: normal vaginal discharge and No vaginal bleeding Speculum Exam - Cervix: nontender Bimanual exam- vagina & uterus: No bladder normal to palpation and No Cervical tenderness present OB/external & speculum: No vaginal bleeding Skin: General skin exam: normal color and no rashes or lesions noted Neuro: Cognition (Neuro): normal cognition Speech: normal speech Extrem: General: normal to inspection and no edema Psych: Mental Status: mental status grossly normal Affect: normal affect Assessment and Plan Assessment and plan (1) Ovarian cyst: Code(s): N83.209 - Unspecified ovarian cyst, unspecified side Status: Acute Assessment and Plan: 34-year-old female who presents for follow-up regarding ovarian cyst Patient tripped and fell over her dog and states she injured her right side in June She presented to the emergency room with right upper quadrant and right costal margin rib pain Patient underwent abdominal imaging and incidentally found a left-sided 8 cm ovarian cyst Imaging also suggested hydrosalpinx follow up US showed no change in cyst size given size of the cyst, recommended surgical evaluation/removal risks, benefits, alternatives discuss at length will plan for laparoscopic left ovarian cystectomy (2) Hydrosalpinx: Code(s): N70.11 - Chronic salpingitis Status: Acute Assessment and Plan: hydrosalpinx noted on initial imaging in ED repeat US did not mention hydrosalpinx would recommend salpingectomy if noted during surgery
[2025-09-08] MEDS: ACETAMINOPHEN 500 MG TABLET 1000 MG PO (10:35)
[2025-09-08] MEDS: KETOROLAC 15 MG/ML VIAL (*BKC) IV PUSH (10:40)
[2025-09-08] MEDS: LACTATED RINGERS 1,000 ML 30 ML IV CONT (10:40)
--- NOTE | 2025-09-08 10:48 | WPDHPUPDATE1 ---
History and Physical Update Update Date/Time: 09/08/25 10:48 History and Physical has been reviewed, including an updated exam of the patient. There are NO changes in the patient's condition. Risks, benefits, and alternatives have been discussed and questions answered. Patient agrees to proceed with procedure. Plan for laparoscopic left ovarian cystectomy possible left salpingectomy possible left oophorectomy
--- NOTE | 2025-09-08 11:27 | WPDANESEPPF ---
Anes - Initial Pre Proc Eval Procedure: Operation Date: 09/08/25 12:00 Proposed Procedures p Laparoscopic Left Salpingo Oophorectomy - Juan Tran MD Date/Time: 09/08/25 11:27 Surgeon: Juan rTan MD Pre Op Diagnosis: left ovarian cyst Patient Data Age: 34 Gender: F Height: 1.57 m Weight: 85.8 kg Last Vital Signs Temp 36.7 C 09/08/25 10:14 Pulse 78 09/08/25 10:14 Resp 16 09/08/25 10:14 BP 133/73 09/08/25 10:14 Pulse Ox 98 09/08/25 10:14 O2 Del Method Room Air 09/08/25 10:14 Allergies Allergy/AdvReac Type Severity Reaction Status Date / Time No Known Allergies Allergy Verified 08/26/25 15:18 Home Medications ?Medication ?Instructions ?Recorded ?Confirmed ?Type propranolol 10 mg tablet 10 mg PO 07/02/25 07/02/25 History Held on 08/26/25. Instructions: Patient no longer taking duloxetine 30 mg capsule,delayed 30 mg PO BID 08/26/25 09/08/25 History release (Cymbalta) omeprazole magnesium 20 mg 40 mg PO DAILY 08/26/25 09/08/25 History capsule,delayed release Patient hx anesthesia problems: none Family hx anesthesia problems: none Results Review: All pre-operative results and documents have been reviewed as part of the pre-operative evaluation. [facility] Past Medical History Medical History GERD (gastroesophageal reflux disease) Anxiety Surgical History Surgical History H/O dilation and curettage Family History Family History Father Depression Diabetes mellitus Heart disease Hypertension Legal Guardian No problems noted. Grandparent Depression Social History Social History Smoking packs per day: 1 Smoking cigarettes per day: 20.0 Years smoked: 15 Smoking pack-years: 15.00 Smoking status: Current every day smoker Tobacco type: cigarettes Alcohol intake: current Substance use: current Substance use type: marijuana Last use: 08/25/25 Do You Feel Safe in your Home?: Yes Lack of Transportation: No Lack of Food: Never True Current Housing: I Have Housing Concerned About Future Housing: No Difficulty Paying Gas/Electric Bills: No Difficulty Paying for Meds: No Currently Unemployed: No Education: High School Diploma/GED Difficulty w/ Childcare or Family Care: No Living arrangements: with family Occupation/Education: occupation Gender identity (if verbalized by the patient): Female Sexual Orientation (if Verbalized by the Patient): Straight or Heterosexual Spiritual care concerns: No Anes - Eval Final PreProcedure Day of Procedure 09/08/25 11:27 Patient weight: obese Heart: regular rate and rhythm Lungs: decreased breath sounds Airway: Mallampati scale class II Neurological: alert and oriented Last oral intake: >/= 8 hours ASA classification: III Emergent: no Anesthetic plan: proceed Anesthesia type and monitoring: general ETT and standard monitoring Results Review: All pre-operative results and documents have been reviewed as part of the pre-operative evaluation. Informed Consent: The patient's anesthetic plan and its attendant risks and benefits were discussed with the patient/family/POA. Questions were solicited and answers provided to the satisfaction of the patient/family/POA.
[2025-09-08] MEDS: LIDO 1%/EPINEPHRINE 1:100,000 50 ML VIAL (12:04)
--- NOTE | 2025-09-08 12:05 | S_PTH ---
PATIENT: Lamar Landry LOC: [facility] U#:[id number] AGE/SX: 34/F ROOM: RE09/08/[address]: Juan Tran MD : 1990 BED: DIS: 09/08/2025 SPEC #: [id number] RECD: 09/08/25 12:43 STATUS: VERÓNICA REQ #: [id number] FARIDEH: 09/08/25 12:[address]: Juan Tran DEPT: [facility] Surgical RECD BY: Hi Salazar ENTERED: 09/08/25 12:44 SP TYPE: Surgical OTHR DR: Ratna Meeks, Tissues: A - Ovary Procedures: Hematoxylin and Eosin Stain Gross and Microscopic Level 4
[2025-09-08 12:16] LABS: BEDSIDEPREGUCG Negative (Negative)
--- NOTE | 2025-09-08 12:26 | P.OP_ITS ---
Procedure Note - Detailed Date of Procedure 09/08/25 Pre-op Diagnosis left ovarian cyst left hydrosalpinx pelvic adhesions Post-op Diagnosis Same Procedure Performed lysis of adhesions laparoscopic left salpingo-oophorectomy Surgeon Juan Tran MD Anesthesia General Indications left ovarian cyst left hydrosalpinx Findings Enlarged left ovary with enlarged ovarian cyst Left hydrosalpinx Dense pelvic adhesions between the ovary and left ovarian fossa as well as bowel omentum Description of Procedure The patient was taken to the operating room where general endotracheal anesthesia was undertaken and found to be adequate. She was then prepped and draped in the dorsal lithotomy position and placed in adjustable stirrups. A pre-operative team brief and a time out were completed. A catheter was placed to drain the bladder. Retractors were placed placed in the vagina and the cervix was identified. An acorn uterine manipulator was placed. Attention was then turned to the abdomen which was anesthetized umbilically with injected anesthetic. A 5 mm skin incision was made in the umbilicus. A 5 mm optical trocar was then placed with direct camera visualization of the abdominal layers during placement. The trocar stylet was removed and the camera was used to verify intra-abdominal placement. CO2 insufflation was then connected and resumed. The pelvis was inspected. A Right lower quadrant 5 mm port was placed, in addition to a right upper quadrant 11 mm port in the standard fashion after using local anesthetic. The pelvis was inspected. The above findings were noted. Lysis of adhesions was performed using the LigaSure device to help restore normal anatomy. Omental adhesions were freed from the left ovary and cyst. While dissecting adhesions, it was noted that the ovary was densely adherent to the left ovarian fossa. The left fallopian tube was elongated and dilated consistent with a hydrosalpinx. The fallopian tube wrapped around the ovary and cyst. At this point, it was decided that dissection of the cyst from the ovary and removing the ovary from the left ovarian fossa was best suited with left salpingo-oophorectomy. The fallopian tube was transected at the uterine corpus. This dissection was carried around to the posterior side of the ovary and cyst along the broad ligament and peritoneum. During dissection, the ovarian cyst was inadvertently ruptured. Clear fluid was expressed from the cyst. The pelvis was copiously irrigated and excess fluid was suctioned out of the pelvis. At this point, the ovary and ovarian cyst wall were elevated to reveal only adhesions to the left ovarian fossa. These adhesions were dissected using the LigaSure device. The left infundibulum pelvic ligament was noted as well as its vasculature. The IP ligament was triple ligated using the LigaSure device and transected. At this point the specimen was freed from the ovarian fossa and the uterus. An endo- pouch was then introduced to the pelvis through the 11 mm port. The left ovary, ovarian cyst, and left fallopian tube were placed in the pouch and removed from abdomen. The surgical field was thoroughly irrigated using normal saline. All surgical beds were made hemostatic using the monopolar hook of the LigaSure device. A Tyrell-Louis cone was used and Vicryl suture was used to close the RUQ 11 mm port fascia. The abdomen was relieved of all CO2 gas. All remaining trocars were removed from the abdomen. Sponge, lap and needle counts were correct. All skin incisions were closed with 4-0 Vicryl suture subcuticularly. The uterine manipulator was removed from the uterus. Hemostasis of the cervix was noted. The urinary catheter was removed. The patient was taken out of dorsal lithotomy position. Anesthesia was reversed. The patient was taken to the PACU. Estimated Blood Loss 20 Urine Output 50 Drains No Packing No Pathology Yes (left fallopian tube, left ovarian, ovarian cyst) Complications No immediate complications Condition Stable Disposition PACU [facility] Billing Surgery - Charge Forward: Surgery Billing
[2025-09-08] MEDS: oxyCODONE HCL (*CRX) 5 MG TAB IR PO (14:14)
== END 2025-09-08 14:46 | disposition home or self-care (01) ==
PROVIDERS: PCP Internal Medicine; Visit Provider Student in an Organized Health Care Education/Training Program
PROC: (CPT 49320; principal; 2025-09-08 12:00)
DX: D27.1 Benign neoplasm of left ovary (principal); N70.11 Chronic salpingitis; N73.6 Female pelvic peritoneal adhesions (postinfective); F17.210 Nicotine dependence, cigarettes, uncomplicated; F12.90 Cannabis use, unspecified, uncomplicated; E66.9 Obesity, unspecified; Z68.34 Body mass index [BMI] 34.0-34.9, adult
CPT/HCPCS: 58661; 88305; A9270; J1885; J2004; J2250; J2270; J2704; J7030; J7120